=== PATIENT | male | born 1980 | race Caucasian/White ===

== ENCOUNTER 2017-04-11 21:05 | Inpatient (IN) | payer BC ==
[2017-04-11] MEDS ORDERED: ACETAMINOPHEN TAB 500 MG TAB PO STA (22:12)
[2017-04-11 22:49] LABS: Basophils % (A) 0 %; CH 28.5; CHCM 32.8; Eosinophils # (A) 0.2 k/uL (0-0.7); Eosinophils % (A) 2 %; HCT 47.3 % (39.0-53.0); HDW 2.52; HGB 15.5 gm/dL (13.0-17.5); Luc % (Auto) 1; Lymphocytes # (A) 0.7 k/uL (1.0-4.8); Lymphocytes % (A) 5 %; MCH 28.6 pg (25.0-35.0); MCHC 32.8 g/dL (31.0-37.0); MCV 87.2 fL (80.0-100.0); Mean Platelet Volume 8.1; Monocytes # (A) 0.5 k/uL (0-1.0); Monocytes % (A) 3 %; Neutrophils # (A) 13.1 k/uL (1.3-7.7); Neutrophils % (A) 90 %; RBC 5.42 m/uL (4.30-5.90); RDW 14.7 % (11.5-15.5); WBC 14.6 k/uL (3.8-10.6); WBC (Perox) 13.42
[2017-04-11] MEDS ORDERED: MORPHINE SULFATE 2 MG/ML SYRINGE IVP ONE (22:53)
[2017-04-11 22:57] LABS: ALT 51 U/L (21-72); AST 29 U/L (17-59); Alkaline Phosphatase 86 U/L (38-126); Anion Gap 11 mmol/L; Blood Urea Nitrogen 14 mg/dL (9-20); Calcium 9.4 mg/dL (8.4-10.2); Carbon Dioxide 25 mmol/L (22-30); Chloride 100 mmol/L (98-107); Glucose 126 mg/dL (74-99); INR 1.1 (<1.2); Non-African American GFR(MDRD) >60 (>60 ml/min/1.73 sqM); Potassium 4.5 mmol/L (3.5-5.1); Prothrombin Time 10.9 sec (9.0-12.0); Sodium 136 mmol/L (137-145); Total Bilirubin 0.4 mg/dL (0.2-1.3)
[2017-04-11] MEDS: SODIUM CHLORIDE 0.9% 500 ML IV SCH ×2 (23:13→23:54)
--- NOTE | 2017-04-11 23:13 | ED ---
Extremity Problem HPI - General Chief complaint: Extremity Problem,Nontraumatic Stated complaint: Cellulitis Time Seen by Provider: 04/11/17 22:03 Source: patient, RN notes reviewed, old records reviewed Mode of arrival: ambulatory Limitations: no limitations - History of Present Illness Initial comments: 36-year-old male process emergency Department chief complaint of left lower leg swelling and redness and pain for the past day. Patient presents is a history of recurrent cellulitis over the left lower leg. He reports is usually and she with outpatient antibiotics. He reports that he has a fever but did not take any Motrin Tylenol today. He reports the redness and swelling became more prominent today. He thinks that originates from some blister infections on his foot. He denies any history of blood clots. He states he is a nondiabetic. - Related Data Home Medications Medication Instructions Recorded Confirmed No Known Home Medications [No 04/11/17 04/11/17 Known Home Medications] Allergies Allergy/AdvReac Type Severity Reaction Status Date / Time No Known Allergies Allergy Verified 04/11/17 22:19 Review of Systems ROS Statement: Those systems with pertinent positive or pertinent negative responses have been documented in the HPI. ROS Other: All systems not noted in ROS Statement are negative. Past Medical History Past Medical History: No Reported History History of Any Multi-Drug Resistant Organisms: None Reported Past Surgical History: No Surgical Hx Reported Past Psychological History: No Psychological Hx Reported Smoking Status: Current every day smoker Past Alcohol Use History: Rare Past Drug Use History: None Reported - Past Family History Mother Family Medical History: Hypertension General Exam - General Exam Comments Initial Comments: is a morbidly obese 36-year-old male. Patient does not appear to be in any acute distress. Limitations: no limitations General appearance: alert, in no apparent distress Head exam: Present: atraumatic, normocephalic, normal inspection Eye exam: Present: normal appearance, PERRL, EOMI. Absent: scleral icterus, conjunctival injection, periorbital swelling ENT exam: Present: normal exam, mucous membranes moist Neck exam: Present: normal inspection. Absent: tenderness, meningismus, lymphadenopathy Respiratory exam: Present: normal lung sounds bilaterally. Absent: respiratory distress, wheezes, rales, rhonchi, stridor Cardiovascular Exam: Present: regular rate, normal rhythm, normal heart sounds. Absent: systolic murmur, diastolic murmur, rubs, gallop, clicks GI/Abdominal exam: Present: soft, normal bowel sounds. Absent: distended, tenderness, guarding, rebound, rigid Extremities exam: Present: full ROM, normal capillary refill. Absent: normal inspection (Patient has evidence of redness and swelling over the left lower leg and foot.), tenderness, pedal edema, joint swelling, calf tenderness Back exam: Present: normal inspection Neurological exam: Present: alert, oriented X3, CN II-XII intact Psychiatric exam: Present: normal affect, normal mood Skin exam: Present: warm, dry, intact, normal color. Absent: rash Course Vital Signs 04/11/17 04/12/17 21:08 00:48 Temperature 103.1 F H 101.8 F H Pulse Rate 121 H 105 H Respiratory 20 18 Rate Blood Pressure 171/76 123/52 O2 Sat by Pulse 94 L 96 Oximetry Medical Decision Making - Medical Decision Making 36-year-old male process emergency Department chief complaint of left lower leg swelling and redness and pain for the past day. Patient presents is a history of recurrent cellulitis over the left lower leg. He reports is usually and she with outpatient antibiotics. He reports that he has a fever but did not take any Motrin Tylenol today. He reports the redness and swelling became more prominent today. He thinks that originates from some blister infections on his foot. He denies any history of blood clots. He states he is a nondiabetic. Patient's laboratory shows evidence of white count. He did have a fever 103 upon arriving to the emergency department. Given Motrin and Tylenol. Patient was started on 3 g of Kefzol this week. EKG was reviewed and shows no evidence of any significant abnormalities. Patient was started on sepsis protocol with source of infection been the left lower leg cellulitis even 2 L of fluid. discussed case with Dr. Paul whom will call in the morning to admit patient to Dr. Agarwal. - Lab Data Result diagrams: 04/11/17 22:35 04/11/17 22:35 Lab Results 04/11/17 04/11/17 04/11/17 Range/Units 22:35 22:35 22:35 WBC 14.6 H (3.8-10.6) k/uL RBC 5.42 (4.30-5.90) m/uL Hgb 15.5 (13.0-17.5) gm/dL Hct 47.3 (39.0-53.0) % MCV 87.2 (80.0-100.0) fL MCH 28.6 (25.0-35.0) pg MCHC 32.8 (31.0-37.0) g/dL RDW 14.7 (11.5-15.5) % Plt Count 184 (150-450) k/uL Neutrophils % 90 % Lymphocytes % 5 % Monocytes % 3 % Eosinophils % 2 % Basophils % 0 % Neutrophils # 13.1 H (1.3-7.7) k/uL Lymphocytes # 0.7 L (1.0-4.8) k/uL Monocytes # 0.5 (0-1.0) k/uL Eosinophils # 0.2 (0-0.7) k/uL Basophils # 0.0 (0-0.2) k/uL PT (9.0-12.0) sec INR (<1.2) APTT (22.0-30.0) sec Sodium 136 L (137-145) mmol/L Potassium 4.5 (3.5-5.1) mmol/L Chloride 100 (98-107) mmol/L Carbon Dioxide 25 (22-30) mmol/L Anion Gap 11 mmol/L BUN 14 (9-20) mg/dL Creatinine 0.90 (0.66-1.25) mg/dL Est GFR (MDRD) Af Amer >60 (>60 ml/min/1.73 sqM) Est GFR (MDRD) Non-Af >60 (>60 ml/min/1.73 sqM) Glucose 126 H (74-99) mg/dL Plasma Lactic Acid Laith 1.6 (0.7-2.0) mmol/L Calcium 9.4 (8.4-10.2) mg/dL Total Bilirubin 0.4 (0.2-1.3) mg/dL AST 29 (17-59) U/L ALT 51 (21-72) U/L Alkaline Phosphatase 86 (38-126) U/L Total Protein 7.0 (6.3-8.2) g/dL Albumin 4.2 (3.5-5.0) g/dL Urine Color Urine Appearance (Clear) Urine pH (5.0-8.0) Ur Specific [place] (1.001-1.035) Urine Protein (Negative) Urine Glucose (UA) (Negative) Urine Ketones (Negative) Urine Blood (Negative) Urine Nitrite (Negative) Urine Bilirubin (Negative) Urine Urobilinogen (<2.0) mg/dL Ur Leukocyte Esterase (Negative) 04/11/17 04/11/17 Range/Units 22:35 23:15 WBC (3.8-10.6) k/uL RBC (4.30-5.90) m/uL Hgb (13.0-17.5) gm/dL Hct (39.0-53.0) % MCV (80.0-100.0) fL MCH (25.0-35.0) pg MCHC (31.0-37.0) g/dL RDW (11.5-15.5) % Plt Count (150-450) k/uL Neutrophils % % Lymphocytes % % Monocytes % % Eosinophils % % Basophils % % Neutrophils # (1.3-7.7) k/uL Lymphocytes # (1.0-4.8) k/uL Monocytes # (0-1.0) k/uL Eosinophils # (0-0.7) k/uL Basophils # (0-0.2) k/uL PT 10.9 (9.0-12.0) sec INR 1.1 (<1.2) APTT 26.0 (22.0-30.0) sec Sodium (137-145) mmol/L Potassium (3.5-5.1) mmol/L Chloride (98-107) mmol/L Carbon Dioxide (22-30) mmol/L Anion Gap mmol/L BUN (9-20) mg/dL Creatinine (0.66-1.25) mg/dL Est GFR (MDRD) Af Amer (>60 ml/min/1.73 sqM) Est GFR (MDRD) Non-Af (>60 ml/min/1.73 sqM) Glucose (74-99) mg/dL Plasma Lactic Acid [place] (0.7-2.0) mmol/L Calcium (8.4-10.2) mg/dL Total Bilirubin (0.2-1.3) mg/dL AST (17-59) U/L ALT (21-72) U/L Alkaline Phosphatase (38-126) U/L Total Protein (6.3-8.2) g/dL Albumin (3.5-5.0) g/dL Urine Color Yellow Urine Appearance Clear (Clear) Urine pH 5.5 (5.0-8.0) Ur Specific [place] 1.018 (1.001-1.035) Urine Protein Negative (Negative) Urine Glucose (UA) Negative (Negative) Urine Ketones Negative (Negative) Urine Blood Negative (Negative) Urine Nitrite Negative (Negative) Urine Bilirubin Negative (Negative) Urine Urobilinogen <2.0 (<2.0) mg/dL Ur Leukocyte Esterase Negative (Negative) 04/12/17 01:56 EKG shows sinus tachycardia with occasional PVCs. 160 bpm. OK interval 160 ms. QRS duration 100 ms. QT QTc is 322/477 ms. No evidence of ST elevation or T-wave inversion. - Radiology Data Radiology results: report reviewed Ultrasound of lower shoulder shows no evidence of DVT. Disposition Clinical Impression: Left leg cellulitis Disposition: ADMITTED IP TO THIS [facility] Condition: Good Time of Disposition: 00:32
[2017-04-11 23:28] LABS: Appearance,Urine Clear (Clear); Bilirubin,Urine Negative (Negative); Glucose,Urine (UA) Negative (Negative); Ketones,Urine Negative (Negative); Leukocyte Esterase,Urine Negative (Negative); Nitrite,Urine Negative (Negative); PH, Urine 5.5 (5.0-8.0); Protein,Urine Negative (Negative); Specific Gravity,Urine 1.018 (1.001-1.035); UA Billing (MACRO vs. MICRO) CHEM; Urobilinogen,Urine <2.0 mg/dL (<2.0)
[2017-04-11] MEDS ORDERED: ceFAZolin 2 GM in SODIUM CHLORIDE 0.9% 100 ML IVPB STA (23:42)
--- NOTE | 2017-04-12 00:28 | US ---
EXAM: US Duplex Left Lower Extremity Veins CLINICAL HISTORY: Pain and redness left leg. TECHNIQUE: The lower extremity deep venous system is examined utilizing real time linear array sonography with graded compression, doppler sonography and color-flow sonography. COMPARISON: No relevant prior studies available. FINDINGS: Limitations: The patient's body habitus. Deep veins: Unremarkable. Normal compression and normal response to augmentation. Superficial veins: Unremarkable as visualized. Soft tissues: No acute findings. IMPRESSION: No evidence of deep venous thrombosis in the left lower extremity.
[2017-04-12] MEDS ORDERED: ceFAZolin 3 GM in SODIUM CHLORIDE 0.9% 100 ML IVPB STA (00:34)
[2017-04-12] MEDS: SODIUM CHLORIDE 0.9% 500 ML IV SCH ×2 (00:35→01:45)
[2017-04-12] MEDS ORDERED: HYDROmorphone 1 MG/ML 1 ML SYRINGE IV PRN (00:46)
[2017-04-12] MEDS ORDERED: NALOXONE 0.4 MG/ML 1 ML VIAL IV PRN (00:46)
[2017-04-12] MEDS ORDERED: LORazepam 2 MG/ML SYRINGE IV PRN (00:46)
[2017-04-12] MEDS ORDERED: ACETAMINOPHEN TAB 325 MG TAB PO PRN (00:46)
[2017-04-12 03:32] VITALS: BMI 62.4
[2017-04-12] MEDS ORDERED: ceFAZolin 3 GM in SODIUM CHLORIDE 0.9% 100 ML IVPB ONE (05:00)
[2017-04-12] MEDS: SODIUM CHLORIDE 0.9% 1,000 ML IV SCH ×5 (05:03→17:59)
[2017-04-12] MEDS: FAMOTIDINE 20 MG TAB PO SCH ×2 (08:42→22:18)
[2017-04-12] MEDS: ENOXAPARIN 40 MG/0.4 ML SYRINGE SQ SCH (08:44)
[2017-04-12] MEDS ORDERED: IV VANCOMYCIN PER PHARMACY 1 EACH MISC MISCELLANE PRN (09:56)
[2017-04-12] MEDS ORDERED: VANCOMYCIN 2,500 MG in SODIUM CHLORIDE 0.9% 500 ML IVPB SCH (10:30)
--- NOTE | 2017-04-12 11:03 | P.HPIM ---
History of Present Illness 36-year-old male morbidly obese gentleman left lower leg swelling and redness and pain for the 2 days day. Patient presents is a history of recurrent cellulitis over the left lower leg. He reports is usually and she with outpatient antibiotics. He reports that he has a fever but did not take any Motrin Tylenol not any improvement. He reports the redness and swelling became more prominent today. He thinks that originates from some blister infections on his foot. He denies any history of blood clots. He states he is a nondiabetic. He had a small blister in the left foot. Agent had a high-grade fever along with leukocytosis because of sepsis patient was admitted. But patient wanted to be discharged. Patient had significant improvement in his lightest of left leg with cafazolin. Patient is not started on vancomycin. Considering his multiple episodes of left lower tonsillitis and counseling infectious disease if they cleared him for discharge to go home on Keflex patient was discharged on Keflex. Review of Systems REVIEW OF SYSTEMS: CONSTITUTIONAL:r, no malaise, no fatigue. HEENT: No recent visual problems or hearing problems. Denied any sore throat. CARDIOVASCULAR: No chest pain, orthopnea, PND, no palpitations, no syncope. PULMONARY: No shortness of breath, no cough, no hemoptysis. GASTROINTESTINAL: No diarrhea, no nausea, no vomiting, no abdominal pain. Normoactive bowel sounds. NEUROLOGICAL: No headaches, no weakness, no numbness. HEMATOLOGICAL: Denies any bleeding or petechiae. GENITOURINARY: Denies any burning micturition, frequency, or urgency. MUSCULOSKELETAL/RHEUMATOLOGICAL: Denies any joint pain, swelling, or any muscle pain. ENDOCRINE: Denies any polyuria or polydipsia. The rest of the 14-point review of systems is negative. Past Medical History Past Medical History: No Reported History Additional Past Medical History / Comment(s): UTI's, reoccurent cellulitis in bilateral Lower extremities History of Any Multi-Drug Resistant Organisms: None Reported Past Surgical History: No Surgical Hx Reported Past Anesthesia/Blood Transfusion Reactions: No Reported Reaction Past Psychological History: No Psychological Hx Reported Smoking Status: Current every day smoker Past Alcohol Use History: Rare Past Drug Use History: None Reported - Past Family History Mother Family Medical History: Hypertension Medications and Allergies Home Medications Medication Instructions Recorded Confirmed Type No Known Home Medications [No 04/11/17 04/11/17 History Known Home Medications] Allergies Allergy/AdvReac Type Severity Reaction Status Date / Time No Known Allergies Allergy Verified 04/11/17 22:19 Physical Exam Vitals: Vital Signs Temp Pulse Pulse Resp BP BP Pulse Ox 04/12/17 08:00 109 H 16 04/12/17 07:00 97.9 F 109 H 16 120/55 95 04/12/17 03:20 101.3 F H 105 H 17 134/70 97 04/12/17 00:48 101.8 F H 105 H 18 123/52 96 04/11/17 21:08 103.1 F H 121 H 20 171/76 94 L Intake and Output 04/11/17 04/12/17 04/12/17 22:59 06:59 14:59 Intake Total 600 Balance 600 Intake: Intake, IV Titration 600 Amount Sodium Chloride 0.9% 1, 600 000 ml @ 200 mls/hr IV . [facility] Rx#:[id number] Other: Weight 249.476 kg 226.796 kg PHYSICAL EXAMINATION: GENERAL: The patient is alert and oriented x3, not in any acute distress. Well developed, well nourished. HEENT: Pupils are round and equally reacting to light. EOMI. No scleral icterus. No conjunctival pallor. Normocephalic, atraumatic. No pharyngeal erythema. No thyromegaly. CARDIOVASCULAR: S1 and S2 present. No murmurs, rubs, or gallops. PULMONARY: Chest is clear to auscultation, no wheezing or crackles. ABDOMEN: Soft, nontender, nondistended, normoactive bowel sounds. No palpable organomegaly. MUSCULOSKELETAL: No joint swelling or deformity. EXTREMITIES: No cyanosis, clubbing, or pedal edema. NEUROLOGICAL: Gross neurological examination did not reveal any focal deficits. SKIN: Patient has bilateral edema chronic. Secondary to morbid obesity. Redness extending up to a few centimeters below the knee. With localized of temperature. Patient has a ruptured bullous lesion in the left foot on the lateral and surface of the left foot. Results CBC & Chem 7: 04/11/17 22:35 04/11/17 22:35 Labs: Abnormal Lab Results - Last 24 Hours (Table) 04/11/17 04/11/17 Range/Units 22:35 22:35 WBC 14.6 H (3.8-10.6) k/uL Neutrophils # 13.1 H (1.3-7.7) k/uL Lymphocytes # 0.7 L (1.0-4.8) k/uL Sodium 136 L (137-145) mmol/L Glucose 126 H (74-99) mg/dL Thrombosis Risk Factor Assmnt - Choose All That Apply Any of the Below Risk Factors Present?: Yes Each Factor Represents 1 point: Obesity (BMI >25), Swollen legs (current) Other Risk Factors: No Thrombosis Risk Factor Assessment Total Risk Factor Score: 2 Thrombosis Risk Factor Assessment Level: Low Risk Assessment and Plan Plan: #1 sepsis with fever and leukocytosis secondary to left lower limb cephalitis. Management as mentioned in uncontrolled history. Continue with Sa[facility]l [facility] and for now but cultures 2 morbid obesity: Counseling was provided. She probably will need sleep study. 3 nicotine dependence: Counseling was provided
[2017-04-12] MEDS: HYDROcodone/APAP 5-325MG 1 EACH TAB PO PRN ×2 (12:06→19:29)
[2017-04-12] MEDS: ceFAZolin 2 GM in SODIUM CHLORIDE 0.9% 100 ML IVPB SCH (17:59)
[2017-04-12] MEDS: CLINDAMYCIN 900 MG in DEXTROSE 5% IN WATER 50 ML IVPB SCH ×2 (20:13)
[2017-04-13] MEDS: ceFAZolin 2 GM in SODIUM CHLORIDE 0.9% 100 ML IVPB SCH ×2 (00:39→07:33)
[2017-04-13] MEDS: HYDROcodone/APAP 5-325MG 1 EACH TAB PO PRN (00:43)
[2017-04-13] MEDS: CLINDAMYCIN 900 MG in DEXTROSE 5% IN WATER 50 ML IVPB SCH ×4 (02:19→09:37)
[2017-04-13] MEDS: SODIUM CHLORIDE 0.9% 1,000 ML IV SCH (07:31)
[2017-04-13 07:46] LABS: Basophils % (A) 0 %; CH 28.1; CHCM 31.7; Eosinophils # (A) 0.1 k/uL (0-0.7); Eosinophils % (A) 1 %; HCT 43.5 % (39.0-53.0); HDW 2.57; Luc # (Auto) 0.18; Luc % (Auto) 2; Lymphocytes # (A) 0.9 k/uL (1.0-4.8); Lymphocytes % (A) 9 %; MCH 28.8 pg (25.0-35.0); MCHC 32.3 g/dL (31.0-37.0); MCV 89.2 fL (80.0-100.0); Mean Platelet Volume 7.8; Monocytes # (A) 0.8 k/uL (0-1.0); Monocytes % (A) 7 %; Neutrophils # (A) 8.2 k/uL (1.3-7.7); Neutrophils % (A) 80 %; RBC 4.87 m/uL (4.30-5.90); RDW 14.8 % (11.5-15.5); WBC 10.2 k/uL (3.8-10.6); WBC (Perox) 10.02
[2017-04-13 08:04] VITALS: BP 139/62; PULSE 98; RESP 16; TEMP 98.3
[2017-04-13 08:11] LABS: Anion Gap 6 mmol/L; Blood Urea Nitrogen 7 mg/dL (9-20); Calcium 8.6 mg/dL (8.4-10.2); Carbon Dioxide 28 mmol/L (22-30); Chloride 106 mmol/L (98-107); Glucose 126 mg/dL (74-99); Non-African American GFR(MDRD) >60 (>60 ml/min/1.73 sqM); Potassium 4.7 mmol/L (3.5-5.1); Sodium 140 mmol/L (137-145)
[2017-04-13] MEDS: FAMOTIDINE 20 MG TAB PO SCH (08:42)
[2017-04-13] MEDS: ENOXAPARIN 40 MG/0.4 ML SYRINGE SQ SCH (08:43)
--- NOTE | 2017-04-13 11:28 | P.DS ---
Providers Date of admission: 04/12/17 01:43 Attending physician: Shannan Figueroa Consults: 04/12/17 10:15 Consult Physician Routine Consulting Provider: Albertina Castillo Consult Reason/Comments: Cellulitis and sepsis Do you want consulting provider notified?: Yes Primary care physician: Alison Moon [facility] Course: Patient is moderately obese gentleman came in with the severe sepsis secondary to left lower limb cellulitis with lactic acidosis which improved. significant improvement at this time with ceftezole and patient will be discharged on Keflex 500 4 times a day. #1 sepsis with fever and leukocytosis secondary to left lower limb cellutis. 2 morbid obesity: Counseling was provided. She probably will need sleep study. 3 nicotine dependence: Counseling was provided Patient Condition at Discharge: Good Plan - Discharge Summary New Discharge Prescriptions: New Cephalexin [Keflex] 500 mg PO Q6HR #40 cap Discharge Medication List Cephalexin [Keflex] 500 mg PO Q6HR #40 cap 04/13/17 [Rx] Follow up Appointment(s)/Referral(s): Red Rosas MD [Primary Care Provider] - 04/20/17 10:00 am Albertina Castillo MD [STAFF PHYSICIAN] - 1 Week Patient Instructions/Handouts: Cephalexin (By mouth), Cellulitis (DC) Discharge Disposition: HOME SELF-CARE
--- NOTE | 2017-04-13 12:09 | CONS ---
DATE OF SERVICE: 04/12/2017 REASON FOR CONSULTATION: Left lower extremity cellulitis. HISTORY OF PRESENT ILLNESS: The patient is a 36-year-old male with past medical history significant for morbid obesity in patient who did have history of recurrent lower extremity cellulitis in bilateral lower extremities. The patient started having problem with left leg swelling and redness. It started with redness and swelling over the weekend where the area became more swollen, red and painful. Pain described as throbbing, 5 to 6 out of 10 and no radiation. The patient denies any significant skin breakdown or drainage. The patient started running a fever. With worsening swelling and redness and the fever, hence the patient presented to [facility] ER. The patient did have fever of 103 degrees Fahrenheit last night. He did receive a dose of Cephazolin and subsequently started on vancomycin and admitted to the hospital. I was asked to see the patient today for further recommendations regarding antibiotic therapy. REVIEW OF SYSTEMS: CONSTITUTIONAL: Positive for weakness along with fever. EYES: No complaint. ENT: No complaint. RESPIRATORY: No complaint. CARDIOVASCULAR: No complaint. GENITOURINARY: No complaint. GASTROINTESTINAL: No complaint. MUSCULOSKELETAL: No complaint. INTEGUMENTARY: As per HPI. PSYCHOLOGICAL: No complaint. ENDOCRINE: No complaint. NEUROLOGICAL: No complaint. PAST MEDICAL HISTORY: Recurrent lower extremity cellulitis and UTI. PAST SURGICAL HISTORY: No major surgeries. SOCIAL HISTORY: The patient is currently an every day smoker. Socially drinks. No drug use. FAMILY HISTORY: Mother with history of hypertension. ALLERGIES: No known drug allergies. MEDICATIONS: The patient is currently on Tylenol, [place], vancomycin, Lovenox, Pepcid, Dilaudid, Ativan. On examination, blood pressure is 129/60 with pulse of 104, temperature 97.4 with T-max of 103. He is 94% on room air. General description is a middle aged male lying in bed in no distress. No tachypnea or accessory muscle of respiration use. HEENT examination shows no pallor or scleral icterus. Mucous membrane is moist. NECK: Trachea central. No thyromegaly. LUNGS: Unlabored breathing. Clear to auscultation. No wheeze or crackles. HEART: S1, S2, regular rate and rhythm. No additional sounds. ABDOMEN: Soft, no tenderness, no guarding, no rigidity. EXTREMITIES: Left leg with swelling and redness with some dry scaly skin and callus formation on the left sternal border with some superficial wound likely source of infection. No evidence of green foot. NEUROLOGICALLY: Patient is awake, alert, oriented x3. Mood and affect normal. LABS: Hemoglobin is 15.5, white count 14.6 with BUN of 14, creatinine 0.90. Electrolytes have been normal. Liver enzymes are normal. DIAGNOSTIC IMPRESSION: Patient admitted to the hospital with sepsis in a patient who did have fever of 102 degrees Fahrenheit and elevated white count of 14,000 making criteria for SIRS and sepsis and source is left lower extremity cellulitis, diffuse swelling and likely streptococcal disease with source of entry likely at the callus formation of lateral border of his left foot. PLAN: 1. Discontinue the vancomycin. 2. Start the patient on Cefazolin 2 grams q.8 hours along with Clindamycin q.8. 3. Sage the area of redness and Bean wrap from just above the ankle to below the knee. 4. Will follow up on his clinical condition and cultures to further adjust medications if needed. Thank you for this consultation. Will follow this patient along with you. CHAKA
--- NOTE | 2017-04-13 16:21 | PN ---
DATE OF SERVICE: 04/13/2017 REASON FOR FOLLOWUP: Left lower extremity cellulitis. INTERVAL HISTORY: The patient is afebrile. The left leg swelling and redness have slightly improved. However, the leg remains swollen and red. The patient denies any pain in the leg area. He denies significant chest pain, shortness of breath or cough, and no abdominal pain. The patient currently is insisting on going home. On examination, blood pressure is 139/52 with a pulse of 98, temperature 98.3. He is 95% on room air. General description is a middle-aged male lying in bed in no distress. RESPIRATORY SYSTEM: Unlabored breathing. Clear to auscultation anteriorly. HEART: S1, S2. Regular rate and rhythm. ABDOMEN: Soft. No tenderness. Left leg swelling and redness have slight improved. LABS: Hemoglobin is 14, white count 10.2 with a BUN of 7, creatinine 0.82. DIAGNOSTIC IMPRESSION AND PLAN: Patient admitted to hospital with acute left lower extremity cellulitis. Patient has been advised to stay in the hospital another 24 to 48 hours to help the infection come down before he can go home on oral antibiotic; however, the patient is insisting on going home. Prescription has been sent for Keflex with close outpatient followup. Patient has been instructed that if there is any worsening of the redness or any fever, to come back to the hospital. CHAKA
== END 2017-04-13 13:09 | disposition home or self-care (01) | DRG 872 ==
LOC: EC 21:05 → 5MS5E 04-12 01:43
PROVIDERS: ADMIT Internal Medicine; ATTEND Internal Medicine
DX: A41.9 Sepsis, unspecified organism (principal); E87.2 Acidosis; L03.116 Cellulitis of left lower limb; Z68.44 Body mass index [BMI] 60.0-69.9, adult; E66.01 Morbid (severe) obesity due to excess calories; F17.200 Nicotine dependence, unspecified, uncomplicated; R65.20 Severe sepsis without septic shock; Z71.3 Dietary counseling and surveillance; Z82.49 Family history of ischemic heart disease and other diseases of the circulatory system
CPT/HCPCS: 36415; 80048; 80053; 81003; 83605; 85025; 85610; 85730; 87040; 87077; 87086; 87186; 93005; 96361; 96365; 96375; 99285